=== PATIENT | male | born 1950 | race African-American/Black ===

== ENCOUNTER → 2017-03-10 | Day surgery (SDC) | payer BC ==
[2017-03-04 07:50] VITALS: Ht 172.7 cm; Wt 61.4 kg
[~2017-03-10] VITALS: Ht 172.7 cm; Wt 61.4 kg
[~2017-03-10] MED LIST: 500ML BSS 0.3ML EPI 1:1000PF IRRIG ONE; ACETAMINOPHEN 325 MG TAB PO PRN; AMVISC PLUS 0.8ML SYRINGE INT OCU ONE; ATROPINE SULFATE 0.1 MG/ML 5ML SYR IV PRN; BSS FLUSH ONE; EpHEDrine SULFATE INJ 50 MG/ML AMP IV PRN; EpINEphrine INJ 1MG/ML AMP 1 MG/ML AMP ONE; IRBE1TAB PO; LACTATED RINGER'S 1000ML 500 ML IV SCH; LIDOCAINE 3.5% OPH GEL PER APPLICATION CHARGE ONE; LIDOCAINE HCL 1% MPF 2 ML VIAL ONE; MIDAZOLAM HCL 1 MG/ML 2ML VIAL ONE; OCUCOAT 1 ML SOLN IO ONE; PHENYLEPHRINE HCL 10% OP SOLN PER DROP CHARGE OPR SCH; POVIDONE-IODINE OP SOLN 30 ML BTL ONE; PROPARACAINE 0.5% OP SOLN PER DROP CHARGE OPR SCH; TOBRAMYCIN/DEXAMETHASONE OPH OINT PER APPLN CHARGE ONE
--- NOTE | 2017-03-10 06:56 | History & Physical Bridge - [place] ---
H&P Re-Evaluation Bridge Note: I have examined the patient, reviewed the History & Physical and in the interval since the performance of the History & Physical I have noted the following changes of clinical significance: No changes noted
[2017-03-10] MEDS: PHENYLEPHRINE HCL 2.5% OP SOLN PER DROP CHARGE OPR SCH ×2 (06:57→07:02)
[2017-03-10] MEDS: TROPICAMIDE 1% OP SOLN PER DROP CHARGE OPR SCH ×2 (06:58→07:04)
[2017-03-10] MEDS: CYCLOPENTOLATE HCL 1% OP SOLN PER DROP CHARGE OPR SCH ×2 (06:59→07:05)
[2017-03-10] MEDS: KETOROLAC 0.5% OP SOLN PER DROP CHARGE OPR SCH ×2 (07:00→07:06)
[2017-03-10] MEDS: GATIFLOXACIN OP SOLN PER DROP CHARGE OPR SCH ×2 (07:01→07:10)
--- NOTE | 2017-03-10 07:43 | Discharge Instructions-SurgCtr ---
Discharge Instructions Date of Service March 10, 2017. Visit Reason for Visit: Cataract Right Eye Discharge Discharge Diagnosis / Problem: cataract Discharge Goals Goal(s): Improve function Activity Recommendations Activity Limitations: per Instructions/Follow-up section Anesthesia . Post Anesthesia Instructions: If you have had General Anesthesia or IV Sedation: * Do not drive today. * Resume driving when surgeon permits. * Do not make important decisions or sign legal documents today. * Call surgeon for: 1. Temperature elevations greater than 101 degrees F. 2. Uncontrollable pain. 3. Excessive bleeding. 4. Persistent nausea and vomiting. 5. Medication intolerance (nausea, vomiting or rash). * For nausea and vomiting use only clear liquids such as: tea, soda, bouillon until nausea subsides, then gradually increase diet as tolerated. * If you have any concerns or questions, call your surgeon's office. If physician is unavailable and it is an emergency, call 911 or go to the nearest emergency room. . Instructions / Follow-Up Instructions / Follow-Up ACTIVITY RECOMMENDATIONS: * No strenuous lifting, jogging or running for 4 days * No swimming or yard work for 1 week. * Limited bending is permitted, such as putting on shoes. RETURN TO SCHOOL/WORK: No work until seen by physician in office. MEDICATIONS: Resume previous medications unless instructed otherwise by your surgeon. This includes eye drops for glaucoma. Zymaxid/Gatifloxacin (rios cap) - one drop every 2 hours until bedtime Nevanac/Ilevro/Prolensa/Ketorolac (mason cap) - one drop every 4 hours until bedtime Prednisolone (white/pink cap, SHAKE WELL) - one drop every 2 hours until bedtime Starting tomorrow - all 3 drops every 4 hours until seen in the office Optive drops - as needed for discomfort SPECIAL CARE INSTRUCTIONS: * Wear eyeshield when sleeping, for four nights. * You may wear your own glasses or sunglasses while awake. * You may read or watch TV * You may shower and wash your face, but be gentle around the eye and pat dry. * Blurry vision and mild irritation are normal. * Call office if pain is more severe or vision becomes dark at . FOLLOW UP VISIT: Follow-up with Dr Cates tomorrow. Diet Recommendations Home Diet: resume previous diet Procedures Procedures Performed: Right Cataract Phacoemulsification With Intraocular Lens Implant Pending Studies Studies pending at discharge: no Medical Emergencies . Who to Call and When: Medical Emergencies: If at any time you feel your situation is an emergency, please call 911 immediately. . Non-Emergent Contact Non-Emergency issues call your: Real Estate Associate Attorney . . "Provider Documentation" section prepared by Lyndon Cates. .
--- NOTE | 2017-03-10 07:43 | [facility] Operative Report ---
Operative Report Date of Service March 10, 2017. Operative Report 1. PREOPERATIVE DIAGNOSIS: Cataract of the right eye. 2. POSTOPERATIVE DIAGNOSIS: Same. 3. PROCEDURE: Phacoemulsification with intraocular lens implantation of the right eye. SURGEON: Dr. Lyndon Cates. ANESTHESIA: Topical Lidocaine gel, 1% Non- Preserved intracameral Lidocaine, and monitored intravenous sedation. INDICATIONS FOR THE PROCEDURE: The patient is a 66 - year-old male with a history of cataract of the right eye causing significant visual impairment. The details of the proposed procedure were explained to the patient who asked appropriate questions and following discussion of all risks, benefits and alternatives agreed to have the procedure done. 4. OPERATION AND FINDINGS: DESCRIPTION OF PROCEDURE: After informed consent was obtained, the patient was brought to the Operating Room at the [facility]. The patient was placed in a supine position and then the right eye was prepped and draped in the usual sterile fashion for intraocular surgery. A drop of topical Lidocaine gel was placed in the operative eye. A wire lid speculum was then placed in the fornices. A corneal paracentesis was then created temporally. The Non-Preserved Lidocaine was then instilled into the anterior chamber. The anterior chamber was then pressurized with viscoelastic. A 2.0 mm clear corneal incision was then created temporally. A cystotome was inserted into the anterior chamber and used to create a tear in the anterior lens capsule. This capsular tear was then used to create a small flap and the flap was dragged in a counterclockwise direction in order to create a continuous curvilinear capsulorrhexis. Hydrodissection was accomplished with balanced salt solution. Phacoemulsification of the lens nucleus was then performed in a standard [id number] technique. The phaco time was 19 seconds with an average power of 7 %. The remaining cortical material was removed using irrigation aspiration. The capsular bag was then filled with viscoelastic. A [employer]ch [employer] Lomb MI60L +23.0 diopters lens was then loaded into the injector and injected into the capsular bag. The remaining viscoelastic was removed with the irrigation aspiration handpiece. The wound was hydrated and then checked and found to be watertight. The intraocular pressure was checked and found to be adequate. The wire lid speculum was removed and the patient's face was cleaned and dried. TobraDex ointment was placed in the inferior fornix. The patient was discharged to the Recovery Room having tolerated the procedure well. There were no complications. The patient will be seen tomorrow in the office for follow-up. I attest to the content of the Intraoperative Record and any orders documented therein. Any exceptions are noted below.
[2017-03-10 07:45] VITALS: TEMP 36.6
--- NOTE | 2017-03-10 07:53 | Anesthesia Progress Nt - [facility] ---
Anesthesia Post Op Note Date & Time March 10, 2017 at 07:53 Vital Signs Pain Intensity: 0 Vital Signs Past 12 Hours Date Time Temp Pulse Resp B/P Pulse Ox O2 Delivery O2 Flow Rate FiO2 03/10/17 06:50 37.1 50 16 157/75 97 Room Air Notes Mental Status: alert / awake / arousable, participated in evaluation Pt Amnestic to Procedure: Yes Nausea / Vomiting: adequately controlled Pain: adequately controlled Airway Patency, RR, SpO2: stable & adequate BP & HR: stable & adequate Hydration State: stable & adequate Anesthetic Complications: no major complications apparent
[2017-03-10 08:10] VITALS: BP 152/82; PULSE 51; O2SAT 98
== END | disposition home or self-care (01) ==
LOC: X.SURG 06:23
PROVIDERS: ATTEND Ophthalmology
DX: H26.9 Unspecified cataract (principal); I10 Essential (primary) hypertension; Z79.899 Other long term (current) drug therapy

== ENCOUNTER 2017-08-14 17:56 | Emergency (ER) | payer BC ==
[~2017-08-14] VITALS: Ht 170.2 cm; Wt 84.5 kg
[~2017-08-14 17:56] MED LIST changes: -500ML BSS 0.3ML EPI 1:1000PF IRRIG ONE; -ACETAMINOPHEN 325 MG TAB PO PRN; -AMVISC PLUS 0.8ML SYRINGE INT OCU ONE; -ATROPINE SULFATE 0.1 MG/ML 5ML SYR IV PRN; -BSS FLUSH ONE; -EpHEDrine SULFATE INJ 50 MG/ML AMP IV PRN; -EpINEphrine INJ 1MG/ML AMP 1 MG/ML AMP ONE; -LACTATED RINGER'S 1000ML 500 ML IV SCH; -LIDOCAINE 3.5% OPH GEL PER APPLICATION CHARGE ONE; -LIDOCAINE HCL 1% MPF 2 ML VIAL ONE; -MIDAZOLAM HCL 1 MG/ML 2ML VIAL ONE; -OCUCOAT 1 ML SOLN IO ONE; -PHENYLEPHRINE HCL 10% OP SOLN PER DROP CHARGE OPR SCH; -POVIDONE-IODINE OP SOLN 30 ML BTL ONE; -PROPARACAINE 0.5% OP SOLN PER DROP CHARGE OPR SCH; -TOBRAMYCIN/DEXAMETHASONE OPH OINT PER APPLN CHARGE ONE
[2017-08-14 18:08] VITALS: Ht 170.2 cm; Wt 84.5 kg
[2017-08-14] MEDS ORDERED: SODIUM CHLORIDE 0.9% 1000ML 1,000 ML IV STA (18:25)
[2017-08-14] MEDS ORDERED: DIAZEPAM 5MG TAB PO STA (18:25)
--- NOTE | 2017-08-14 18:53 | DIAGNOSTIC IMAGING REPORT ---
CHEST ONE VIEW PORTABLE CLINICAL HISTORY: EVALUATE WEAKNESS dyspnea COMPARISON STUDY: No previous studies for comparison. FINDINGS: The bones soft tissues and hemidiaphragms are normal. The cardiomediastinal silhouette is normal. The lungs are clear. The pulmonary vasculature is normal. IMPRESSION: Negative chest. The above report was generated using voice recognition software. It may contain grammatical, syntax or spelling errors. Electronically signed by: Kostas Whitlock M.D. 08/14/2017 6:52 PM Dictated Date/Time: 08/14/2017 6:51 PM
[2017-08-14 18:59] VITALS: O2SAT 96
[2017-08-14 19:04] LABS: BASO % 0.6 %; BASO ABS # 0.02 K/uL (0-0.2); COMPLETE YES; HEMATOCRIT 40.9 % (42-52); LYMPH % 47.8 %; LYMPH ABS # 1.61 K/uL (1.2-3.4); MEAN CELL VOLUME 84.7 fL (80-100); MEAN CORPUSCULAR HGB CONC 35.5 g/dl (32-36); MEAN PLATELET VOLUME 10.5 fL (7.4-10.4); MONO % 10.4 %; NEUT % 36.2 %; PLATELET COUNT 176 K/uL (130-400); RED BLOOD COUNT 4.83 M/uL (4.7-6.1); WHITE BLOOD COUNT 3.37 K/uL (4.8-10.8)
[2017-08-14 19:18] LABS: INR 1.1 (0.9-1.1); PARTIAL THROMBOPLASTIN RATIO 1.2; PROTHROMBIN TIME (PATIENT) 11.3 SECONDS (9.0-12.0)
--- NOTE | 2017-08-14 19:22 | DIAGNOSTIC IMAGING REPORT ---
HEAD WITHOUT CONTRAST (CT) CT DOSE: 623.48 mGy.cm HISTORY: Mental status change EVALUATE WEAKNESS TECHNIQUE: Multiaxial CT images of the head were performed without the use of intravenous contrast. A dose lowering technique was utilized adhering to the principles of ALARA. Comparison: None. Findings: The paranasal sinuses and mastoid air cells are clear. Moderate frontal atrophy. Mild chronic small vessel change of aging. No acute intracranial hemorrhage. No midline shift. Impression: Frontal atrophy. Age-related change. No acute process. The above report was generated using voice recognition software. It may contain grammatical, syntax or spelling errors. Electronically signed by: Kostas Whitlock M.D. 08/14/2017 7:20 PM Dictated Date/Time: 08/14/2017 7:20 PM
[2017-08-14 19:32] LABS: ALT/SGPT 19 U/L (12-78); BLOOD UREA NITROGEN 20 mg/dl (7-18); BUN/CREATININE RATIO 18.2 (10-20); CALCIUM 8.7 mg/dl (8.5-10.1); CARBON DIOXIDE 29 mmol/L (21-32); CHLORIDE 106 mmol/L (98-107); CREATININE 1.07 mg/dl (0.60-1.40); GLUCOSE 88 mg/dl (70-99); MAGNESIUM 2.1 mg/dl (1.8-2.4); POTASSIUM 3.6 mmol/L (3.5-5.1); SODIUM 141 mmol/L (136-145)
[2017-08-14 19:43] LABS: ALKALINE PHOSPHATASE 58 U/L (45-117); AST/SGOT 18 U/L (15-37); PHOSPHORUS 2.2 mg/dl (2.5-4.9)
[2017-08-14 20:16] LABS: URINE APPEARANCE CLOUDY (CLEAR); URINE BILIRUBIN NEG (NEG); URINE COLOR YELLOW; URINE EPITHELIAL CELL AUTO 0-5 /lpf (0-5); URINE NITRITE NEG (NEG); URINE SPECIFIC GRAVITY 1.028 (1.000-1.030); UROBILINOGEN NEG (NEG)
[2017-08-14 20:18] LABS: MANUAL MICROSCOPIC REQUIRED? NO; REVIEW REQ? NO
--- NOTE | 2017-08-14 20:34 | EMERGENCY ROOM VISIT NOTE ---
History Report prepared by Dwain: Torrie Briseno Under the Supervision of: Dr. Deonte Koch M.D. First contact with patient: 18:12 Chief Complaint: DIZZY Stated Complaint: HEADACHE Nursing Triage Summary: pt reports 10 days ago sx started with dizziness sent here for tyrell conde. ekg changes. History of Present Illness The patient is a 66 year old black male with a past medical history of hypertension, hernia surgery who presents to the ED with a cc of persistent dizziness beginning 10 days ago which occurs when he is standing. The dizziness has been improved for the past couple of days. Positive feeling off balance, nausea. Negative room spinning, chest pain, SOB, change in bowel movement, urinary symptoms, numbness, weakness, tingling, change in appetite. The patient returned from a trip to [place] 2 weeks ago. The symptoms began a couple days after he returned home. He admits to occasional alcohol use. He denies any tobacco use. He runs 2 miles 3 times a week and has been doing so recently without difficulty. He denies any recent stress. Source of History: patient Onset: 10 days ago Position: other (global) Quality: other (dizziness) Timing: other (persistent) Modifying Factors (Worsening): other (standing) Associated Symptoms: + nausea, No chest pain, No SOB, No urinary symptoms, No weakness, No numbness Note: Pt reports feeling off balance. Pt denies room spinning, change in bowel movement. Review of Systems See HPI for pertinent positives and negatives. A total of ten systems were reviewed and were otherwise negative. Past Medical & Surgical Medical Problems: (1) Hypertension Surgical Problems: (1) S/P hernia surgery Family History No pertinent family history stated. Social History Smoking Status: Never Smoker Marital Status: Occupation Status: employed Current/Historical Medications Scheduled Irbesartan-Hydrochlorothiazide (Irbesartan/Hydrochlorothi), 1 TAB PO QAM Allergies Coded Allergies: NO KNOWN DRUG ALLERGIES (Verified Allergy, Unknown, ., 08/14/17) Physical Exam Vital Signs Date Time Temp Pulse Resp B/P (MAP) Pulse Ox O2 Delivery O2 Flow Rate FiO2 08/14/17 21:48 36.6 52 18 139/70 98 08/14/17 21:18 52 18 139/70 98 Room Air 08/14/17 19:20 48 08/14/17 19:00 45 136/68 44 151/71 49 152/75 08/14/17 18:59 96 Room Air 08/14/17 18:08 36.6 46 18 170/77 99 Room Air Physical Exam GENERAL: Awake, alert, well-appearing, NAD HENT: Normocephalic, atraumatic. EYES: Normal conjunctiva. Sclera non-icteric. Arcus senilis. PERRL. EOMI. NECK: Supple. No nuchal rigidity. FROM. RESPIRATORY: CTAB, no rhonchi, wheezing, crackles CARDIAC: RRR, no MRG ABDOMEN: Soft, NTND, BS+ MSK: No chest wall TTP, no LE edema NEURO: CN 2-12 intact, 5/5 upper and lower extremity strength, no dysmetria, no drift, good finger to nose but with slight intention tremor bilaterally, negative Romberg, normal gait, no sensory deficits. SKIN: No rash or jaundice noted. Medical Decision & Procedures ER Provider Diagnostic Interpretation: Radiology results as stated below per my review and radiologist interpretation: CHEST ONE VIEW PORTABLE CLINICAL HISTORY: EVALUATE WEAKNESS dyspnea COMPARISON STUDY: No previous studies for comparison. FINDINGS: The bones soft tissues and hemidiaphragms are normal. The cardiomediastinal silhouette is normal. The lungs are clear. The pulmonary vasculature is normal. IMPRESSION: Negative chest. The above report was generated using voice recognition software. It may contain grammatical, syntax or spelling errors. Electronically signed by: Kostas Whitlock M.D. 08/14/2017 6:52 PM Dictated Date/Time: 08/14/2017 6:51 PM HEAD WITHOUT CONTRAST (CT) CT DOSE: 623.48 mGy.cm HISTORY: Mental status change EVALUATE WEAKNESS TECHNIQUE: Multiaxial CT images of the head were performed without the use of intravenous contrast. A dose lowering technique was utilized adhering to the principles of ALARA. Comparison: None. Findings: The paranasal sinuses and mastoid air cells are clear. Moderate frontal atrophy. Mild chronic small vessel change of aging. No acute intracranial hemorrhage. No midline shift. Impression: Frontal atrophy. Age-related change. No acute process. The above report was generated using voice recognition software. It may contain grammatical, syntax or spelling errors. Electronically signed by: Kostas Whitlock M.D. 08/14/2017 7:20 PM Dictated Date/Time: 08/14/2017 7:20 PM BRAIN COMBO CLINICAL HISTORY: off balance, ?vertigo, HTN, HLD mental status change COMPARISON STUDY: No previous studies for comparison. TECHNIQUE: Utilizing a 1.5 Daisy magnet and dedicated coil, multiplanar, multiecho imaging of the brain was performed pre and postcontrast administration. IV administration of 9.5 mL of Gadavist contrast was uneventful. FINDINGS: Diffusion-weighted images are negative for an acute ischemic process. Findings of generalized atrophy most prominent in the frontal regions. Moderate chronic small vessel change of aging. No significant postcontrast enhancement. Ventricular system is midline. Sella and parasellar regions are unremarkable. IMPRESSION: Age-related change. Atrophy. Otherwise negative study. The above report was generated using voice recognition software. It may contain grammatical, syntax or spelling errors. Electronically signed by: Kostas Whitlock M.D. 08/14/2017 9:17 PM Dictated Date/Time: 08/14/2017 9:14 PM Laboratory Results 08/14/17 18:49 Red Blood Count 4.83, Mean Corpuscular Volume 84.7, Mean Corpuscular Hemoglobin 30.0, Mean Corpuscular Hemoglobin Concent 35.5, Mean Platelet Volume 10.5, Neutrophils (%) (Auto) 36.2, Lymphocytes (%) (Auto) 47.8, Monocytes (%) (Auto) 10.4, Eosinophils (%) (Auto) 5.0, Basophils (%) (Auto) 0.6, Neutrophils # (Auto ) 1.22, Lymphocytes # (Auto) 1.61, Monocytes # (Auto) 0.35, Eosinophils # (Auto ) 0.17, Basophils # (Auto) 0.02 08/14/17 18:49 Test 08/14/17 18:49 08/14/17 20:00 White Blood Count 3.37 K/uL (4.8-10.8) Red Blood Count 4.83 M/uL (4.7-6.1) Hemoglobin 14.5 g/dL (14.0-18.0) Hematocrit 40.9 % (42-52) Mean Corpuscular Volume 84.7 fL (80-100) Mean Corpuscular Hemoglobin 30.0 pg (25-34) Mean Corpuscular Hemoglobin Concent 35.5 g/dl (32-36) Platelet Count 176 K/uL (130-400) Mean Platelet Volume 10.5 fL (7.4-10.4) Neutrophils (%) (Auto) 36.2 % Lymphocytes (%) (Auto) 47.8 % Monocytes (%) (Auto) 10.4 % Eosinophils (%) (Auto) 5.0 % Basophils (%) (Auto) 0.6 % Neutrophils # (Auto) 1.22 K/uL (1.4-6.5) Lymphocytes # (Auto) 1.61 K/uL (1.2-3.4) Monocytes # (Auto) 0.35 K/uL (0.11-0.59) Eosinophils # (Auto) 0.17 K/uL (0-0.5) Basophils # (Auto) 0.02 K/uL (0-0.2) RDW Standard Deviation 41.2 fL (36.4-46.3) RDW Coefficient of Variation 13.4 % (11.5-14.5) Immature Granulocyte % (Auto) 0.0 % Immature Granulocyte # (Auto) 0.00 K/uL (0.00-0.02) Prothrombin Time 11.3 SECONDS (9.0-12.0) Prothromb Time International Ratio 1.1 (0.9-1.1) Activated Partial Thromboplast Time 30.1 SECONDS (21.0-31.0) Partial Thromboplastin Ratio 1.2 Anion Gap 6.0 mmol/L (3-11) Est Creatinine Clear Calc Drug Dose 72.5 ml/min Estimated GFR () 84.6 Estimated GFR (Non- 73.0 BUN/Creatinine Ratio 18.2 (10-20) Calcium Level 8.7 mg/dl (8.5-10.1) Phosphorus Level 2.2 mg/dl (2.5-4.9) Magnesium Level 2.1 mg/dl (1.8-2.4) Total Bilirubin 0.7 mg/dl (0.2-1) Direct Bilirubin 0.2 mg/dl (0-0.2) Aspartate Amino Transf (AST/SGOT) 18 U/L (15-37) Alanine Aminotransferase (ALT/SGPT) 19 U/L (12-78) Alkaline Phosphatase 58 U/L (45-117) Troponin I < 0.015 ng/ml (0-0.045) Pro-B-Type Natriuretic Peptide 13 pg/ml (0-900) Total Protein 7.1 gm/dl (6.4-8.2) Albumin 3.6 gm/dl (3.4-5.0) Thyroid Stimulating Hormone (TSH) 1.540 uIu/ml (0.300-4.500) Urine Color YELLOW Urine Appearance CLOUDY (CLEAR) Urine pH 5.0 (4.5-7.5) Urine Specific Carson 1.028 (1.000-1.030) Urine Protein NEG (NEG) Urine Glucose (UA) NEG (NEG) Urine Ketones NEG (NEG) Urine Occult Blood NEG (NEG) Urine Nitrite NEG (NEG) Urine Bilirubin NEG (NEG) Urine Urobilinogen NEG (NEG) Urine Leukocyte Esterase NEG (NEG) Urine WBC (Auto) 1-5 /hpf (0-5) Urine RBC (Auto) 0-4 /hpf (0-4) Urine Hyaline Casts (Auto) 1-5 /lpf (0-5) Urine Epithelial Cells (Auto) 0-5 /lpf (0-5) Urine Bacteria (Auto) NEG (NEG) Laboratory results reviewed by me Medications Administered Medications (Trade) Dose Ordered Sig/Becky Route Start Time Stop Time Status Last Admin Dose Admin Sodium Chloride 1,000 ml @ 999 mls/hr Q1H1M STAT IV 08/14/17 18:25 08/14/17 19:25 DC 08/14/17 19:10 999 MLS/HR ECG Indication: other (dizziness) Rate (beats per minute): 41 Rhythm: sinus bradycardia Findings: 1st degree AV block, T-wave inversion (3 and aVF), no ectopy, other ( prolonged HI interval, no other STS changes or TWI) Comparison ECG Date: 2013 Change: TWI new. ED Course 1813: The patient was evaluated in room C5. A complete history and physical exam was performed. 1824: NSS 1000 ml @ 999 mls/hr IV. 2014: I reevaluated the patient. He will go for an MRI. 2135: I reevaluated the patient. Discussed results and discharge instructions: he verbalized understanding and agreement. The patient is ready for discharge. Medical Decision Differential diagnosis: Etiologies such as benign positional vertigo, dehydration, hypovolemia, anemia, tumor, infection, hypoglycemia, electrolyte abnormalities, cardiac sources, intracerebral event, toxicologic, neurologic, as well as others were entertained. The patient is a 66 year old black male with a past medical history of hypertension, hernia surgery who presents to the ED with a cc of persistent dizziness beginning 10 days ago. Patient was seen and evaluated at the bedside. Patient was complaining of some achiness which may be described as a slight imbalance. Patient does have a history of hypertension. Patient does have arcus senilis concerning for undiagnosed hyperlipidemia. Patient also had some noted changes on his EKG when he was seen in outpatient clinic and was referred here for further workup. Patient denies any chest pain or shortness of breath. Patient EKG did show sinus bradycardia with a rate of 40s. Patient states he always has a low heart rate. Patient does have an elevated blood pressure. Patient had a negative troponin and blood work was fairly unremarkable. Patient had mild leukopenia just under 4000. Patient also has mild hypophosphatemia. Patient's UA was clean. Patient did have some cerebral atrophy seen on the CT but no acute infarct or bleed. Upon reassessment patient was stating he still had some mild imbalance. Patient then had an MRI that was ordered. Patient's MRI with and without were negative. I spoke with our onsite case manager stated they would obtain a cardiology follow-up appointment for him within the next 1-2 weeks. Given that the patient does have some changes from her prior EKG 2 years ago but the patient does not endorse any chest pain is negative troponin with symptoms for 10 days less likely to be ACS. Patient was told that he will need to follow-up but if he has any recurrence of chest pain or shortness of breath he should return for further evaluation. Given the patient's negative MRI with otherwise fairly normal blood work negative CT less likely to be stroke. Patient was also told to follow-up with his PCP to discuss starting a baby aspirin, lipid panel, and an additional antihypertensive. Patient agreed with plan of care. Patient was given strict follow-up, discharge, and return precautions and was safely discharged home. Medication Reconcilliation Current Medication List: was personally reviewed by me Blood Pressure Screening Patient's blood pressure: Elevated blood pressure Blood pressure disposition: Elevated BP felt to be situational Impression Primary Impression: Hypertension Additional Impressions: Vertigo Hypophosphatemia Bradycardia Scribe Attestation The scribe's documentation has been prepared under my direction and personally reviewed by me in its entirety. I confirm that the note above accurately reflects all work, treatment, procedures, and medical decision making performed by me. Departure Information Dispostion Home / Self-Care Referrals Maggie Jhaveri M.D. (PCP) Patient Instructions ED Bradycardia, ED Fall Dizziness Weakn Balance, My [facility] Additional Instructions Please return to the emergency department if you have worsening or recurrent symptoms not amenable to at-home treatment. Please call for a follow-up appointment with her primary care physician. Please take your medications as prescribed. If you have other concerns and/or complaints please feel free to also call your primary care physician's office or return the ED for further evaluation, management, and treatment. Please discuss taking a baby aspirin as well as an additional anti-hypertensive medication. I would also recommend checking a lipid panel to ensure you don't have high cholesterol or triglycerides w/ your primary care physician. Please keep your cardiology follow up appointment. You have been examined and treated today on an emergency basis only. This is not a substitute for, or an effort to provide, complete comprehensive medical care. It is impossible to recognize and treat all injuries or illnesses in a single emergency department visit. It is therefore important that you follow up closely with [facility]. Call as soon as possible for an appointment. Thank you for your time and consideration. I look forward to speaking with you again soon. Please don't hesitate to call us if you have any questions. Problem Qualifiers Primary Impression: Hypertension Hypertension type: essential hypertension Qualified Codes: I10 - Essential ( primary) hypertension
[2017-08-14] MEDS ORDERED: GADAVIST IV PRN (21:15)
--- NOTE | 2017-08-14 21:18 | DIAGNOSTIC IMAGING REPORT ---
BRAIN COMBO CLINICAL HISTORY: off balance, ?vertigo, HTN, HLD mental status change COMPARISON STUDY: No previous studies for comparison. TECHNIQUE: Utilizing a 1.5 Daisy magnet and dedicated coil, multiplanar, multiecho imaging of the brain was performed pre and postcontrast administration. IV administration of 9.5 mL of Gadavist contrast was uneventful. FINDINGS: Diffusion-weighted images are negative for an acute ischemic process. Findings of generalized atrophy most prominent in the frontal regions. Moderate chronic small vessel change of aging. No significant postcontrast enhancement. Ventricular system is midline. Sella and parasellar regions are unremarkable. IMPRESSION: Age-related change. Atrophy. Otherwise negative study. The above report was generated using voice recognition software. It may contain grammatical, syntax or spelling errors. Electronically signed by: Kostas Whitlock M.D. 08/14/2017 9:17 PM Dictated Date/Time: 08/14/2017 9:14 PM
[2017-08-14 21:48] VITALS: BP 139/70; PULSE 52; TEMP 36.6; O2SAT 98
== END 2017-08-14 21:50 | disposition home or self-care (01) ==
LOC: C.EDB 17:57 → C.EDC 21:50
DX: R42 Dizziness and giddiness (principal); R00.1 Bradycardia, unspecified; E83.39 Other disorders of phosphorus metabolism; D72.819 Decreased white blood cell count, unspecified; I10 Essential (primary) hypertension